=== PATIENT | female | born 1975 | race Caucasian/White ===

== ENCOUNTER 2018-12-18 14:37 | Emergency (ER) | payer OTHER ==
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
[2018-12-18 16:15] VITALS: BP 119/70
== END 2018-12-18 16:14 | disposition home or self-care (01) ==
LOC: ED 14:37
DX: Z04.1 Encounter for examination and observation following transport accident (principal); Z88.1 Allergy status to other antibiotic agents
CPT/HCPCS: 99282